=== PATIENT | female | born 2000 ===

== ENCOUNTER 2022-03-13 22:37 | Emergency (ER) | payer SELFPAY ==
[2022-03-13 22:53] VITALS: BP 130/72
[2022-03-13 23:15] LABS: Bilirubin,Urine NEG (Negative); Blood,Urine LG (Negative); Color,Urine Straw (Yellow); Mucus,Urine FEW /HPF; Protein,Urine <15 mg/dL mg/dL (Negative); Urobilinogen,Urine < 2.0 mg/dL (<2.0)
[2022-03-13 23:21] LABS: RBC,Urine < 1.0 /HPF (0.0-6.0)
[2022-03-14 01:33] LABS: Basophils # (Auto) 0.1 K/mm3 (0.0-0.1); Basophils % (Auto) 0.4 % (0.0-1.8); Eosinophils # (Auto) 0.3 K/mm3 (0.0-0.4); Eosinophils % (Auto) 2.6 % (0.0-4.3); Hemoglobin 12.1 gm/dl (10.1-14.3); Lymphocytes # (Auto) 1.9 K/mm3 (1.2-5.4); Lymphocytes % (Auto) 15.4 % (13.4-35.0); Mean Corpuscular HGB Conc 34 % (30-34); Mean Corpuscular Volume 89 fl (79-97); Monocytes # (Auto) 0.9 K/mm3 (0.0-0.8); Monocytes % (Auto) 6.9 % (0.0-7.3); Platelet Count 244 K/mm3 (140-440); Red Blood Count 4.07 M/mm3 (3.65-5.03); Red Cell Distribution Width 12.5 % (13.2-15.2)
--- NOTE | 2022-03-14 18:40 | Event Note ---
Date: 03/14/22 I noticed that the patient is been in the lobby for a while and reviewed her labs when i noticed she is with vaginal bleeding with concern for ectopic . I raised an alert to look for the patient and bring her into the main ED for complete evaluation and treatment. I was told that patient has been called several times to the fast track with no response from the patient. She likely left without been seen by the doctor.
== END 2022-03-16 07:26 | disposition left against medical advice (07) ==
LOC: ED 22:37
DX: O46.91 Antepartum hemorrhage, unspecified, first trimester (principal); Z3A.14 14 weeks gestation of pregnancy; Z53.21 Procedure and treatment not carried out due to patient leaving prior to being seen by health care provider
CPT/HCPCS: 36415; 81001; 84702; 84703; 85025; 86900; 86901